=== PATIENT | female | born 2000 | race Two or more races ===

== ENCOUNTER 2024-12-25 13:58 | Outpatient (RCR) | payer MEDICAID, SELFPAY ==
--- NOTE | 2024-12-25 14:34 | PT.OIERPT ---
PT OP Initial Eval Patient Information Outpatient Physical Therapy Treatment Date: 12/25/24 Visit Reasons: vertigo Medical Diagnosis: R42 Start of Care: 12/25/24 Date of Onset: 2 months ago Smoking Status Smoking Status: Never smoker Initial Assessment Subjective: Pt is 24 yr old female who reports dizziness and a feeling of swaying. The symptoms are aggravated by loud sounds, lights, standing for more than 30 mins and being in a car. 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 She tried meclizine which made her feel nauseous. PMH: migraines on propanolol 10mg, hypotension on miclodrine Pt goal: to get rid of the dizziness Objective: BP: 97/67 in sitting Robinson-Hallpike to R: negative to the L: negative Smooth pursuit: WNL Visual tracking: WNL C/S ArOM: slight dizziness with extension and flexion but no significant ROM deficits. Assessment: Pt presentation consistent with hypotension. She feels less dizzy in supine than sitting and vestibular testing was negative today. These findings aren't consistent with BPPV and seem to be consistent with hypotension. Pt will not benefit from skilled therapy since dizziness is not vestibular. Thank you for your referrals. Short Term and Fdc Goals Eval and D/C Treatment Plan Eval and D/C Certification Dates: 12/25/24 Procedure Charges OP PT Eval Mod Complex 30 minutes: Yes
== END 2025-01-08 23:59 | disposition home or self-care (01) ==
LOC: CPTX 13:58
PROVIDERS: PCP Nurse Practitioner; Referring Provider Nurse Practitioner; Visit Provider Nurse Practitioner
DX: R42 Dizziness and giddiness (principal)
CPT/HCPCS: 97162

== ENCOUNTER → 2025-01-15 | Outpatient (CLI) | payer MEDICAID, SELFPAY ==
--- NOTE | 2025-01-15 11:30 | XR_ITS ---
Examination: Abdomen sonogram, complete Date and time of exam: January 15, 2025, 11:38 a.m. INDICATIONS: Abdominal pain after eating beginning 3 months ago. Technique: Multiple real-time grayscale transabdominal sonographic images of the abdomen have been obtained. Findings: 3 mm gallstone Normal gallbladder wall. Common bile duct 0.6 cm no stones Pancreatic head 1.7 cm Aorta not enlarged. Liver 16.8 cm fatty infiltration. Normal hepatopetal portal venous flow. Patent IVC. Right kidney 12.2 cm renal cortex 1.0 cm Left kidney 10.8 cm renal cortex 1.9 cm Spleen 8.4 cm Impression: Cholelithiasis, negative for cholecystitis Mildly prominent common bile duct, clinical correlation advised, if biliary colic is a clinical consideration, recommend MRCP follow-up
== END | disposition home or self-care (01) ==
PROVIDERS: PCP Nurse Practitioner; Referring Provider Nurse Practitioner; Visit Provider Nurse Practitioner
DX: K80.20 Calculus of gallbladder without cholecystitis without obstruction (principal); K83.9 Disease of biliary tract, unspecified
CPT/HCPCS: 76700

== ENCOUNTER 2025-02-14 21:46 | Emergency (ER) | payer MEDICAID, SELFPAY ==
[2025-02-14 21:48] VITALS: BMI 23.5
[2025-02-14 22:19] VITALS: BP 152/99; PULSE 65; RESP 18; TEMP 36.6; O2SAT 97
--- NOTE | 2025-02-14 22:27 | PD.EDRME ---
Rapid Medical Screening Exam RME Arrival date/time: 02/14/25 21:46 Chief Complaint: General Adult/Misc Complain Time Seen by Provider: 02/14/25 22:20 Vital signs: Vital Signs Temperature 98 F 02/14/25 22:19 Pulse Rate 65 02/14/25 22:19 Respiratory Rate 18 02/14/25 22:19 Blood Pressure 152/99 H 02/14/25 22:19 Pulse Oximetry (%) 97 02/14/25 22:19 Oxygen Delivery Method Room Air 02/14/25 22:19 RME Narrative: Vestibular migraines for the past 2 months. Patient was treated in outside ED on Tuesday. Reports she took venlafaxine for first time today with Zofran, now her legs will not stop shaking Exam: No acute distress Clinical Impression: Headache, leg shaking
[2025-02-14 23:07] LABS: Alanine Aminotransferase 9 U/L (10-49); Albumin, Serum 4.7 gm/dL (3.5-5.0); Albumin/Globulin Ratio 2.1 (1.2-2.2); Alkaline Phosphatase 48 U/L (46-116); Anion Gap 8 (7-16); Aspartate Amino Transferase 18 U/L (0-34); BUN/Creatinine Ratio 6 Ratio (12-20); Bilirubin,Total 0.7 mg/dL (0.3-1.2); Blood Urea Nitrogen < 5 mg/dL (9-23); Calcium 9.5 mg/dL (8.3-10.6); Calcium (Corrected) 9.5 mg/dL (8.5-10.1); Carbon Dioxide 26.3 mMol/L (20.0-31.0); Chloride 105 mMol/L (98-107); Creatine Kinase 81 U/L (34-171); Creatinine (Component) 0.8 mg/dL (0.6-1.3); Estimated Creatinine Clearance 104.5 mL/min (>60); Globulin 2.2 gm/dL (2.3-3.5); Glucose 96 mg/dL (74-106); Osmolality,Calculated 274 (275-295); Potassium 4.3 mMol/L (3.4-5.1); Sodium 139 mMol/L (136-145); Total Protein 6.9 gm/dL (5.7-8.2); eGFR > 60 See Note
[2025-02-14 23:11] LABS: Basophils # (Auto) 0.0 Thou/mm3 (0.0-0.2); Basophils % (Auto) 1 % (0-2.5); Eosinophils # (Auto) 0.3 Thou/mm3 (0.0-0.5); Eosinophils % (Auto) 5 % (0-10); Hematocrit 38.8 % (36.0-46.0); Hemoglobin 13.6 g/dL (12.0-16.0); Immature Granulocytes Auto 0.01 Thou/mm3 (0.00-0.00); Lymphocytes # (Auto) 2.1 Thou/mm3 (1.0-4.8); Lymphocytes % (Auto) 36 % (10-50); Mean Corpuscular HGB Conc 35.1 g/dl (31.0-37.0); Mean Corpuscular Hemoglobin 31.4 pg (25.0-35.0); Mean Corpuscular Volume 90 fL (80-100); Monocytes # (Auto) 0.4 Thou/mm3 (0.0-0.8); Monocytes % (Auto) 6 % (0-12); Neutrophils # (Auto) 3.0 Thou/mm3 (1.8-7.7); Neutrophils % (Auto) 52 % (37-80); Nucleated Red Blood Cell # 0.00 Thou/mm3 (0.00-0.00); Nucleated Red Blood Cell % 0 /100 WBC (0); Platelet Count 266 Thou/mm3 (140-440); RDW Standard Deviation 39.9 fL (36.4-46.3); Red Blood Count 4.33 Miln/mm3 (4.00-5.20); White Blood Count 5.8 Thou/mm3 (3.6-11.0)
[2025-02-14 23:14] LABS: Collection Type, Urine Clean Catch
--- NOTE | 2025-02-14 23:18 | PD.EDADULT ---
ED General RME/HPI General Chief complaint: General Adult/Misc Complain Stated complaint: MULTIPLE COMPLAINTS Time Seen by Provider: 02/14/25 22:20 Arrival date/time: 02/14/25 21:46 RME / HPI RME / HPI narrative: Vestibular migraines for the past 2 months. Patient was treated in outside ED on Tuesday. Reports she took venlafaxine for first time today with Zofran, now her legs will not stop shaking Dr. Rgealado?s Main ED Evaluation: 25yo female with a history of vestibular migraines presents to the ED for a headache x the last few days. Patient took Venlafaxine and Zofran today, reporting she's since had N/V and shaking to her legs. Patient denies any other associated symptoms. NKA. Related Data Allergies Allergy/AdvReac Type Severity Reaction Status Date / Time No Known Allergies Allergy Verified 02/14/25 21:47 Review of Systems Review of Systems Systems Reviewed: All systems reviewed, normal except as documented Past Medical History Social History SMOKING STATUS: Never smoker ED Exam Narrative Physical exam: Generally patient is alert smiling and in no obvious distress, head is normocephalic atraumatic, eyes pupils equal round reactive to light, heart regular rate and rhythm, lungs clear to auscultation equal bilaterally, abdomen soft bowel sounds present also nontender, neurologic exam no focal motor deficits with Rajeev Coma Scale of 15. Patient is exhibiting rapid shaking movements bilateral lower extremities however this seems to be somewhat voluntary. Course Quality Measures none Orders Category Date Time Status Alcohol, Urine Stat Lab 02/14/25 23:05 Completed CBC Stat Lab 02/14/25 22:41 Completed CK [Creatine Kinase] Stat Lab 02/14/25 22:41 Completed CMP [Comprehensive Metabolic Panel] Stat Lab 02/14/25 22:41 Completed Drug Screen,Urine Stat Lab 02/14/25 23:05 Completed HCG Qualitative,Urine Stat Lab 02/14/25 23:05 Completed UA [Urinalysis] Stat Lab 02/14/25 23:05 Completed DiphenhydrAMINE [Benadryl] Med 02/14/25 23:28 Discontinued 25 mg PO X1 ONE Ringers Lactated 1000 ml [Lactated Ringers] 1,000 ml Med 02/14/25 23:28 Active IV 999 mls/hr Vital Signs Vital signs: Vital Signs Temperature 98 F 02/14/25 22:19 Pulse Rate 65 02/14/25 22:19 Respiratory Rate 18 02/14/25 22:19 Blood Pressure 152/99 H 02/14/25 22:19 Pulse Oximetry (%) 97 02/14/25 22:19 Oxygen Delivery Method Room Air 02/14/25 22:19 Discharge Plan Plan Patient Disposition: HOME (Self Care) Problem List Clinical Impression: Cephalalgia, Drug side effects Patient/Caregiver Discharge Instructions Education Materials: Self-Care for Headaches Additional Instructions: Discuss with your physician about the possibility of stopping the Effexor. Follow-up with your doctor for further treatment and evaluation. Print Language: Lithuanian Stand Alone Forms: Linda Award Info., Patient Portal Info Letter MDM Narrative MDM hospital course (for use when minimal MDM required): Scribe Attestation: 02/14/25 - I, Nicolette De La Torre am scribing for and in the presence of Dr. Regalado. Patient is asking for IV hydration because it has helped her headaches in the past. She was hydrated with 1 L of lactated Ringer's. She was given Benadryl 25 mg p.o. for possible extraparametal side effects of the Effexor. She will be discharged in stable condition to discuss with her physician about discontinuing the Effexor. Clinical Information Provided by: patient Medical Records reviewed [facility] (Per chart review, patient has no previous ED visits or admissions to this facility.) Meds/Rx considered, not ordered None Labs/Rad/Tests considered, not ordered None Chronic Illness/Social Conditions which may negatively complicate care or outcome(s)-explain: None or not applicable Labs Labs: interpreted by me Imaging Imaging interpretation: none Medication Administration(s) Medication Administration History Lactated Ringer's (Lactated Ringers) 1,000 mls @ 999 mls/hr IV .Q1H1M ONE Stop: 02/15/25 00:28 Discontinued Medications Diphenhydramine HCl (Diphenhydramine 25 Mg Capsule) 25 mg PO X1 ONE Stop: 02/14/25 23:29 see above Diagnosis Differential Diagnosis ED Complaint MDM: See MDM
[2025-02-14 23:22] LABS: Bacteria,Urine Rare; Bilirubin,Urine Negative (Negative); Blood,Urine Negative (Negative); Clarity,Urine Clear (Clear/Hazy); Color,Urine Lt-Yellow (Lt Yel-Yel); Glucose, Urine Negative (Negative); Ketones,Urine Negative (Negative); Leukocyte Esterase,Urine Negative (Negative); Nitrite,Urine Negative (Negative); PH,Urine 7.5 (5.0-7.0); Protein,Urine Negative (Neg - Trace); RBC,Urine 1 /hpf (0-3); Specific Gravity,Urine 1.003 (1.001-1.035); Squamous Epithelial Cell,Urine < 1 /hpf (0-5); Urobilinogen,Urine Negative mg/dL (0.0-1.0); WBC,Urine < 1 /hpf (0-5)
[2025-02-14 23:36] LABS: HCG Qualitative,Urine Negative
[2025-02-14 23:37] LABS: Alcohol, Urine Negative (Negative); Amphetamine/Methamp Scrn,U Negative (Negative); Barbiturate Screen,Urine Negative (Negative); Benzodiazepines Screen,Urine Negative (Negative); Benzoylecgonine Screen, Ur Negative (Negative); Fentanyl Screen,Urine Negative (Negative); Opiate Screen,Urine Negative (Negative); THC Screen,Urine Negative (Negative)
[2025-02-14] MEDS: RINGERS LACTATED 1000 ML 1,000 ML 999 ML IV (23:52)
[2025-02-15 00:05] VITALS: BP 124/82; PULSE 89; RESP 16; TEMP 36.8; O2SAT 98
[2025-02-15 01:06] VITALS: BP 137/69; PULSE 80; RESP 18; O2SAT 99
--- NOTE | 2025-02-15 01:11 | PC.NURSE ---
pt continues to say no improvement. However, appears in no distress and vs WNL. wanting to speak with MD. MD aware.
== END 2025-02-15 01:39 | disposition home or self-care (01) ==
LOC: SERX 02-15 00:27
PROVIDERS: Physician Assistant; Emergency Provider Emergency Medicine; PCP Nurse Practitioner
DX: G43.809 Other migraine, not intractable, without status migrainosus (principal)
CPT/HCPCS: 36415; 80053; 80307; 80320; 81001; 81025; 82550; 85025; 99283; J7120; A9270; G0480